=== PATIENT | female | born 1980 | race Caucasian/White ===

== ENCOUNTER → 2021-02-10 | Outpatient (CLI) | payer BC ==
--- NOTE | 2021-02-12 19:19 | Diagnostic Imaging Report ---
INDICATION: Screening. At this time there are no current complaints. EXAMINATION: Digital mammogram bilateral screening with CAD. 3D tomographic images were obtained and reviewed. The current study was also evaluated with a Computer Aided Detection (CAD) system. COMPARISON: This study was compared to the prior exam of 08/24/2013. FINDINGS: In the interval since the prior exam bilateral breast implants have been inserted. The implants seem to be intact. There is no sign of an extracapsular rupture of either implant. The fibroglandular tissue overlying the implants is extremely dense. This does limit the sensitivity of this exam. On the MLO pinch view of the right breast there is a 10.0 mm asymmetry overlying the superior aspect of the breast just anterior to the pectoralis muscle. Just anterior to this asymmetry there is another 5.0 mm rounded asymmetry. These findings cannot be identified on the other views of the right breast with certainty. These could be secondary to fibroglandular tissue alone. The possibility that there are small discrete nodules in this area should still be considered. I would recommend that a compression view of this area be obtained in the MLO projection for further study. Ultrasound should also be performed. The left breast is unremarkable. IMPRESSION: An additional mammographic view and ultrasound of the right breast would be recommended for further study. ACR BI-RADS Category 0: Incomplete. (Needs additional imaging evaluation). Result letter will be mailed to the patient. Note: At least 10% of breast cancer is not imaged by mammography. Dictated by: Dictated on workstation # [id number]
== END ==
LOC: RAD 15:00
PROVIDERS: ATTEND Obstetrics & Gynecology
DX: Z12.31 Encounter for screening mammogram for malignant neoplasm of breast (principal)
CPT/HCPCS: 77063; 77067

== ENCOUNTER → 2021-02-24 | Outpatient (CLI) | payer BC ==
--- NOTE | 2021-02-24 14:38 | Diagnostic Imaging Report ---
INDICATION: Right breast densities. Correlation is made with diagnostic mammogram earlier the same day. Sonographic interrogation upper outer right breast was performed. There are 2 cysts at the 10 and 11 o'clock location, 5 cm from the nipple. Largest cyst measures approximately 1 cm in size. Second cyst is approximately 6 to 7 mm in size. No solid mass is detected. IMPRESSION: Simple cyst 10 o'clock location right breast, likely accounting for the mammographic densities. The patient may return to routine annual screening mammography. BI-RADS Category 2 ACR BI-RADS Category 2: Benign findings. Result letter will be mailed to the patient. Note: At least 10% of breast cancer is not imaged by mammography. Dictated by: Dictated on workstation # [id number]
--- NOTE | 2021-02-24 15:24 | Diagnostic Imaging Report ---
INDICATION: Right breast density. Patient presents for additional views. Correlation is made with screening study from 02/10/2021. Unilateral right 2-D and 3-D diagnostic mammography was performed including spot compression ML views. There are persistent nodular densities in the superior right breast near the axilla approximately 10 cm from the nipple. These appear to be laterally located on the tomographic images. Further evaluation ultrasound is recommended. IMPRESSION: BI-RADS 0 Persistent nodular densities after additional views. Further evaluation ultrasound upper outer right breast 10 cm from the nipple is recommended and will be performed today. ACR BI-RADS Category 0: Incomplete. (Needs additional imaging evaluation). Result letter will be mailed to the patient. Note: At least 10% of breast cancer is not imaged by mammography. Dictated by: Dictated on workstation # [id number]
== END ==
LOC: RAD 12:45
PROVIDERS: ATTEND Obstetrics & Gynecology
DX: N60.01 Solitary cyst of right breast (principal)
CPT/HCPCS: 76642; 77065; G0279